=== PATIENT | male | born 1985 | race Caucasian/White ===

== ENCOUNTER → 2016-06-29 | Outpatient (CLI) | payer BC ==
[~2016-06-29] MED LIST: ALBUTEROL SULF8.5 GM IH; ENDOCET 5-3251 EACH PO; FLEXERIL5 MG PO; IBUPROFEN600 MG PO; METHADONE H5 MG/5 ML PO; MUCINEX D ER T1 EACH PO; NEXIUM20 MG PO; OXYCODONE-ACET1 EACH PO; PREDNISONE50 MG PO; RITALIN20 MG PO; TESSALON PERLE100 MG PO; VYVANSE70 MG PO; ZITHROMAX250 MG PO
== END | disposition home or self-care (01) ==
LOC: CDC 09:39
DX: Z01.810 Encounter for preprocedural cardiovascular examination (principal); M47.817 Spondylosis without myelopathy or radiculopathy, lumbosacral region
CPT/HCPCS: 93000

== ENCOUNTER 2016-06-30 05:29 | Inpatient (IN) | payer BC ==
[~2016-06-30] VITALS: Ht 182.9 cm; Wt 114.1 kg
[~2016-06-30 05:29] MED LIST changes: -ENDOCET 5-3251 EACH PO; -FLEXERIL5 MG PO
[2016-06-30 05:50] VITALS: BP 118/88
[2016-06-30 16:16] VITALS: BP 130/83
[2016-06-30 19:50] VITALS: BP 111/72
[2016-07-01 00:27] VITALS: BP 113/66
[2016-07-01 08:15] VITALS: BP 103/55
[2016-07-01] MEDS ORDERED: ENDOCET 5-3251 EACH PO (08:37)
[2016-07-01] MEDS ORDERED: FLEXERIL5 MG PO (08:37)
[2016-07-01 16:26] VITALS: BP 114/53
== END 2016-07-01 17:28 | disposition home or self-care (01) | DRG 460 ==
LOC: 2SOUTH → 3EAST 05:29 → 2SOUTH 05:29 → 3EAST 15:34 → 2SOUTH 15:46 → 3EAST 07-01 17:28
PROC: 0SG30A1 (ICD-10-PCS; principal; 2016-06-30)
DX: M43.17 Spondylolisthesis, lumbosacral region (principal); M54.16 Radiculopathy, lumbar region; R20.2 Paresthesia of skin; M47.817 Spondylosis without myelopathy or radiculopathy, lumbosacral region; M51.26 Other intervertebral disc displacement, lumbar region
CPT/HCPCS: 72100; 76000; 81003; 85025; 86900; 86901; 95886; 95938; C1713; J0131; J0330; J0690; J1100; J1170; J2250; J2405; J3010; J3370; J3480; S0020